=== PATIENT | male | born 1955 | race Asian ===

== ENCOUNTER 2018-09-27 07:18 | Day surgery (SDC) | payer OTHER ==
[2018-09-26 15:01] VITALS: Ht 167.6 cm; Wt 70.0 kg
[2018-09-27] VITALS (12 sets, daily range): BP systolic 119–157; BP diastolic 65–95; PULSE 64–77; RESP 16–20
[~2018-09-27] VITALS: Ht 167.6 cm; Wt 70.0 kg
[2018-09-27] MEDS ORDERED: SOD CHLORIDE 0.9% 1,000 ML IV SCH (08:09)
[2018-09-27] MEDS ORDERED: METF-849 PO (08:28)
[2018-09-27] MEDS ORDERED: CARV3.12 PO (08:28)
[2018-09-27] MEDS ORDERED: ASPI-903 PO (08:28)
[2018-09-27] MEDS ORDERED: LISI10TA2 PO (08:28)
[2018-09-27] MEDS ORDERED: GLIP5TAB13 ORAL (08:32)
[2018-09-27] MEDS ORDERED: LOSA25TA12 ORAL (08:32)
[2018-09-27] MEDS ORDERED: ROSU5TAB11 ORAL (08:32)
[2018-09-27] MEDS ORDERED: MIDAZOLAM 1 MG/ML 2 ML INJ ONE (09:12)
[2018-09-27] MEDS ORDERED: LIDOCAINE 1% (MDV) 20 ML INJ ONE ×2 (09:12)
[2018-09-27] MEDS ORDERED: FENTAnyl 50 MCG/ML VIAL ONE (09:12)
== END 2018-09-27 15:07 | disposition home or self-care (01) ==
LOC: SDS 07:18
PROVIDERS: ATTEND Internal Medicine Hematology & Oncology
DX: C34.32 Malignant neoplasm of lower lobe, left bronchus or lung (principal); E11.9 Type 2 diabetes mellitus without complications; I10 Essential (primary) hypertension; F17.200 Nicotine dependence, unspecified, uncomplicated
CPT/HCPCS: 32405; 71045; 77012; 82962; 88307; 88313; J2250; J3010

== ENCOUNTER 2018-11-01 10:46 | Day surgery (SDC) | payer OTHER ==
[2018-10-31 17:11] VITALS: Ht 167.6 cm; Wt 70.0 kg
[~2018-11-01] VITALS: Ht 167.6 cm; Wt 70.0 kg
[~2018-11-01 10:46] MED LIST: GLIP5TAB13 ORAL; LOSA25TA12 ORAL; ROSU5TAB11 ORAL
[2018-11-01] MEDS ORDERED: SOD CHLORIDE 0.9% 1,000 ML IV ONE (11:30)
[2018-11-01 11:48] VITALS: BP 159/83; PULSE 75; RESP 16
[2018-11-01] MEDS ORDERED: LIDOCAINE 1%/EPI (1:100,000) (MDV) 20 ML ONE (13:06)
[2018-11-01] MEDS ORDERED: CEFAZOLIN 1 GM/50 ML (PMX) 50 ML IVPB ONE (13:06)
[2018-11-01] MEDS ORDERED: HEPARIN 1000 UNITS/ML 10 ML INJ ONE (13:06)
[2018-11-01] MEDS ORDERED: POLYMYXIN/BACITRACIN 1L IRRIG ONE (13:07)
[2018-11-01] MEDS ORDERED: FENTAnyl 50 MCG/ML VIAL ONE (13:35)
[2018-11-01] MEDS ORDERED: MIDAZOLAM 1 MG/ML 2 ML INJ ONE (13:35)
--- NOTE | 2018-11-01 14:38 | HPN ---
Date/Time of Note Date/Time of Note DATE: 11/01/18 TIME: 14:37 Interval H&P Admission Note Pt. seen H&P reviewed: No system changes KERI CROW MD Nov 01, 2018 14:38
[2018-11-01 14:50] VITALS: BP 108/63; PULSE 74; RESP 17
--- NOTE | 2018-11-01 15:08 | RADRPT ---
PROCEDURE: FLUOROSCOPIC AND ULTRASONOGRAPHIC-GUIDED PLACEMENT OF RIGHT CHEST PORT. CLINICAL INDICATION: History of lung cancer. Venous access for chemotherapy. TECHNIQUE: Informed consent was obtained. The procedure, risks, benefits, complications and alternatives were e xplained to the patient. Risks including bleeding, infection, and pneumothorax were explained. The p atient understood and was willing to proceed. A procedural pause was performed. The patient's name, d ate of , and procedure to be performed were verified. The central line was inserted with all el ements of maximal sterile barrier technique. All of the following were used: head covering, facial ma sk, sterile gown, sterile gloves, a large sterile sheet, hand hygiene, and 2% chlorhexidine for cuta neous antisepsis. The right neck and anterior/superior chest wall were prepped and draped in usual sterile fashion. Limited sonography of the right neck was then performed. Noted is a patent right internal jugular vei n. Following the local injection of 1% lidocaine, the right internal jugular vein was punctured under so nographic guidance with a 20-gauge needle through which a 0.018 inch floppy tip guidewire was advance d into the superior vena cava, then the right atrium with fluoroscopic guidance. The tract was dila adrian to 5 [place] and the wire was then replaced with a 0.035 in guidewire. A site just inferior to the clavicle in the superior anterior right chest wall was localized. One per cent lidocaine was used as local anesthesia. A transverse 2.5 cm incision was made utilizing a 15 eugenia de scalpel. Utilizing blunt dissection a subcutaneous pocket was created inferior to the incision. Th e cavity was flushed with approximately 40 cc of PB antibiotic solution. The catheter was tunneled underneath the skin from the newly created pocket to the puncture site in t he neck. The central line catheter was pulled through the tract. Serial dilatation was then performed and a 7 [place] peel away sheath was introduced. The catheter was then advanced through the peel-away sheath until the tip was positioned in the right atrium. The peel-away sheath was removed. The sharan ter was flushed, clamped, and cut to the appropriate length. The 6.6 [place] catheter was then connected to the [employer] power port. The port was then placed into the pocket. Prior to closing the instrument and sponge count was verified and was correct. The s ubcutaneous tissue was closed with 3-0 Vicryl interrupted suture. The skin at the site of the pocket and in the neck was closed with 4-0 Vicryl suture in a running subcuticular technique. The port was f lushed with 1500 units of heparin in 1.5 cc utilizing a Arambula needle. The needle was removed. A dress ing was applied. Specimens: None. Blood loss: 5 ml. Complications: None. Kiss Setter Hand: None Anesthesia: Local and moderate sedation. Graft/Implant: Right chest port. COMPARISON: None. FINDINGS: Ultrasound images were recorded and stored in the patient's medical record. Final radiographic images demonstrate the tip of the catheter in the upper right atrium. A total of 0.8 minutes of fluoroscopy time was used. 1 images of the chest were obtained with the image intensi fier. The ultrasound images demonstrate the needle entering the internal jugular vein. IMPRESSION: 1. Successful ultrasonographic and fluoroscopic guided placement of right chest power port. RPTAT: QQ Physician Alva Date Time Electronically viewed and signed by Physician Alva on 11/01/2018 15:07 RD/
== END 2018-11-01 16:30 | disposition home or self-care (01) ==
LOC: SDS 10:46
PROVIDERS: ATTEND Nuclear Medicine
DX: C34.92 Malignant neoplasm of unspecified part of left bronchus or lung (principal); I10 Essential (primary) hypertension; E11.9 Type 2 diabetes mellitus without complications; F17.200 Nicotine dependence, unspecified, uncomplicated
CPT/HCPCS: 36561; 82962; C1788; J0690; J1644; J2250; J3010